=== PATIENT | female | born 1975 | race Caucasian/White ===

== ENCOUNTER → 2016-09-05 | Outpatient (CLI) | payer MEDICAID ==
[2016-09-05 12:20] LABS: Basophils # (A) 0.1 k/uL (0-0.2); Basophils % (A) 1 %; CH 28.5; CHCM 32.9; Eosinophils # (A) 0.2 k/uL (0-0.7); Eosinophils % (A) 2 %; HCT 39.3 % (34.0-46.0); HGB 13.6 gm/dL (11.4-16.0); Luc # (Auto) 0.27; Luc % (Auto) 3; Lymphocytes # (A) 2.5 k/uL (1.0-4.8); Lymphocytes % (A) 25 %; MCH 30.2 pg (25.0-35.0); MCHC 34.6 g/dL (31.0-37.0); MCV 87.3 fL (80.0-100.0); Mean Platelet Volume 6.2; Monocytes # (A) 0.7 k/uL (0-1.0); Monocytes % (A) 7 %; Neutrophils # (A) 6.3 k/uL (1.3-7.7); Neutrophils % (A) 63 %; RBC 4.51 m/uL (3.80-5.40); RDW 13.5 % (11.5-15.5); WBC (Perox) 10.74
[2016-09-05 12:34] LABS: ALT 34 U/L (9-52); AST 21 U/L (14-36); Alkaline Phosphatase 51 U/L (38-126); Anion Gap 13 mmol/L; Blood Urea Nitrogen 13 mg/dL (7-17); Calcium 9.6 mg/dL (8.4-10.2); Carbon Dioxide 26 mmol/L (22-30); Chloride 103 mmol/L (98-107); Glucose 88 mg/dL (74-99); Non-African American GFR(MDRD) >60 (>60 ml/min/1.73 sqM); Potassium 4.7 mmol/L (3.5-5.1); Sodium 142 mmol/L (137-145); Total Bilirubin 1.1 mg/dL (0.2-1.3); Total Protein 8.1 g/dL (6.3-8.2)
[2016-09-05 14:00] LABS: Hemoglobin A1C 5.5 % (4.2-6.1)
[2016-09-05 14:29] LABS: Erythrocyte Sedimentation Rate 15 mm/hr (0-20)
== END | disposition home or self-care (01) ==
LOC: LABWHC1 11:48
PROVIDERS: ATTEND Family Medicine
DX: R23.2 Flushing (principal); R59.1 Generalized enlarged lymph nodes
CPT/HCPCS: 36415; 80053; 83036; 84443; 85025; 85652

== ENCOUNTER → 2016-09-25 | Outpatient (CLI) | payer MEDICAID ==
--- NOTE | 2016-09-25 08:55 | MM ---
Reason for exam: screening (asymptomatic). Baseline mammogram. History: Took hormonal contraceptives for 12 years beginning at age 19. Physical Findings: Nurse did not find any significant physical abnormalities on exam. MG 3D Screening Mammo W/Cad Bilateral CC and MLO view(s) were taken. There are scattered fibroglandular densities. Reinform shaped mass 10 o'clock right breast middle depth likely an intrammary lymph node. A 6 month follow up recommended. These results were verbally communicated with the patient and result sheet given to the patient on 09/25/16. ASSESSMENT: Probably benign, BI-RAD 3 RECOMMENDATION: Follow-up diagnostic mammogram of the right breast in 6 months.
== END | disposition home or self-care (01) ==
LOC: RADMAMWWP 06:58
PROVIDERS: ATTEND Family Medicine
DX: Z12.31 Encounter for screening mammogram for malignant neoplasm of breast (principal); Z00.00 Encounter for general adult medical examination without abnormal findings; R59.1 Generalized enlarged lymph nodes
CPT/HCPCS: 77063; G0202

== ENCOUNTER → 2017-02-02 | Outpatient (CLI) | payer MEDICAID ==
[2017-02-02 18:15] LABS: ANA w/Reflex to Titer NEGATIVE (NEGATIVE); Cyclic Citrull Pep IgG Unit <0.5 U/mL; Cyclic Citrullinated Pep IgG NEGATIVE (NEGATIVE)
[2017-02-03 10:37] LABS: HLA B27 Comment SEEBELOW
== END | disposition home or self-care (01) ==
LOC: LABWHC1 08:04
PROVIDERS: ATTEND Orthopaedic Surgery Hand Surgery
DX: S66.912A Strain of unspecified muscle, fascia and tendon at wrist and hand level, left hand, initial encounter (principal)
CPT/HCPCS: 36415; 86038; 86200; 86431; 86812

== ENCOUNTER → 2018-01-25 | Outpatient (CLI) | payer MEDICAID ==
--- NOTE | 2018-01-27 10:25 | MM ---
Reason for exam: screening (asymptomatic). Last mammogram was performed 9 months ago. History: Took hormonal contraceptives for 12 years beginning at age 19. MG 3D Screening Mammo W/Cad Bilateral CC and MLO view(s) were taken. Prior study comparison: April 19, 2017, right breast MG 3d diag mammo w/cad RT. September 25, 2016, bilateral MG 3d screening mammo w/cad. The breast tissue is almost entirely fat. No significant changes when compared with prior studies. ASSESSMENT: Benign, BI-RAD 2 RECOMMENDATION: Routine screening mammogram of both breasts in 1 year.
== END ==
LOC: RADMAMWWP 10:58
PROVIDERS: ATTEND Family Medicine
DX: Z12.31 Encounter for screening mammogram for malignant neoplasm of breast (principal)
CPT/HCPCS: 77063; 77067

== ENCOUNTER → 2019-03-28 | Outpatient (CLI) | payer MEDICAID ==
[2019-03-28 08:53] LABS: Basophils # (A) 0.1 k/uL (0-0.2); Basophils % (A) 1 %; Eosinophils # (A) 0.3 k/uL (0-0.7); Eosinophils % (A) 3 %; HCT 42.5 % (34.0-46.0); HGB 13.8 gm/dL (11.4-16.0); Lymphocytes # (A) 2.3 k/uL (1.0-4.8); Lymphocytes % (A) 27 %; MCH 28.2 pg (25.0-35.0); MCHC 32.5 g/dL (31.0-37.0); Monocytes # (A) 0.6 k/uL (0-1.0); Monocytes % (A) 7 %; Neutrophils # (A) 5.2 k/uL (1.3-7.7); Neutrophils % (A) 60 %; Platelet Count 303 k/uL (150-450); RBC 4.88 m/uL (3.80-5.40); RDW 13.4 % (11.5-15.5); WBC 8.6 k/uL (3.8-10.6)
[2019-03-28 16:03] LABS: African American GFR (CKD) 103.9 (60.0-200.0); Albumin 4.5 g/dL (3.80-4.90); Albumin/Globulin Ratio 1.8 (1.60-3.17); Anion Gap 3.8 mmol/L (4.00-12.00); BUN/Creat Ratio 16.25 Ratio (12.00-20.00); Calcium 9.5 mg/dL (8.7-10.3); Carbon Dioxide 30.2 mmol/L (21.6-31.8); Globulin 2.5 g/dL (1.6-3.3); Non-African American GFR(CKD) 89.7 (60.0-200.0); Potassium 4.9 mmol/L (3.5-5.5); Total Bilirubin 0.6 mg/dL (0.3-1.2)
== END | disposition home or self-care (01) ==
LOC: LABWHC1 08:09
PROVIDERS: ATTEND Surgery
DX: R59.1 Generalized enlarged lymph nodes (principal)
CPT/HCPCS: 36415; 80053; 85025

== ENCOUNTER → 2020-05-29 | Outpatient (CLI) | payer MEDICAID ==
[2020-05-29 18:15] LABS: HCT 41.2 % (37.2-46.3); HGB 13.3 g/dL (12.0-15.0); MCH 28.8 pg (27.0-32.0); MCHC 32.3 g/dL (32.0-37.0); MCV 89.2 fL (80.0-97.0); Mean Platelet Volume 9.8 fL (9.5-12.2); Platelet Count 356 X 10*3/uL (140-440); RBC 4.62 X 10*6/uL (4.10-5.20); RDW 14.4 % (11.5-14.5); WBC 7.17 X 10*3/uL (4.50-10.00)
[2020-05-30 01:15] LABS: African American GFR (CKD) 89.5 (60.0-200.0); Albumin 4.7 g/dL (3.80-4.90); Albumin/Globulin Ratio 1.81 (1.60-3.17); Anion Gap 11.1 mmol/L (4.00-12.00); BUN/Creat Ratio 17.78 Ratio (12.00-20.00); Calcium 9.7 mg/dL (8.7-10.3); Carbon Dioxide 20.9 mmol/L (21.6-31.8); Globulin 2.6 g/dL (1.6-3.3); Magnesium 2.2 mg/dL (1.5-2.4); Non-African American GFR(CKD) 77.2 (60.0-200.0); Potassium 4.5 mmol/L (3.5-5.5); Total Bilirubin 0.4 mg/dL (0.2-1.2); Total Protein 7.3 g/dL (6.2-8.2)
[2020-05-30 02:23] LABS: Folate, Serum 10.2 ng/mL
== END | disposition home or self-care (01) ==
LOC: LABWHC1 08:27
PROVIDERS: ATTEND Psychiatry & Neurology Neurology
DX: Z20.822 Contact with and (suspected) exposure to COVID-19 (principal); R51.9 Headache, unspecified
CPT/HCPCS: 36415; 80053; 82607; 82746; 83735; 84439; 84481; 85027; 86769

== ENCOUNTER → 2020-06-19 | Outpatient (CLI) | payer MEDICAID ==
--- NOTE | 2020-06-19 09:30 | US ---
EXAMINATION TYPE: US mass soft tissue chest/back DATE OF EXAM: 06/19/2020 COMPARISON: NONE CLINICAL HISTORY: R59.0 Enlarged lymph nodes,R94.31 Abnormal EKG. Patient states having a palpable on right upper chest by clavicle bone that changes in size. Area of concern scanned. Possible well blended lymph node visualized = 1.8 x 0.9 x 0.8 cm. IMPRESSION: Probable adenopathy. Please correlate clinically.
--- NOTE | 2020-06-19 12:00 | ECHOF ---
Referral Reason:R59.0 Enlarged lymph nodes,R94.31 Abnormal EKG MEASUREMENTS -------- HEIGHT: 170.2 cm WEIGHT: 93.9 kg BP: RVIDd: 2.7 cm (< 3.3) IVSd: 0.9 cm (0.6 - 1.1) LVIDd: 4.8 cm (3.9 - 5.3) LVPWd: 1.0 cm (0.6 - 1.1) IVSs: 1.4 cm LVIDs: 3.4 cm LVPWs: 1.2 cm LA Diam: 3.5 cm (2.7 - 3.8) LAESV Index (A-L): 23.74 ml/m Ao Diam: 2.7 cm (2.0 - 3.7) AV Cusp: 1.2 cm (1.5 - 2.6) MV EXCURSION: 19.783 mm (> 18.000) MV EF SLOPE: 103 mm/s (70 - 150) EPSS: 0.2 cm MV E Leno: 0.64 m/s MV DecT: 140 ms MV A Leno: 0.49 m/s MV E/A Ratio: 1.29 RAP: 5.00 mmHg RVSP: 19.39 mmHg FINDINGS -------- Sinus rhythm. This was a technically good study. LV size, wall thickness and systolic function are normal, with an EF greater than 55%. The left serena tricular size is normal. The right ventricle is normal in size. Normal LA size by volume 22+/-6 ml/m2. The right atrial size is normal. The aortic valve is trileaflet, and appears structurally normal. No aortic stenosis or regurgitation. There is trace mitral regurgitation. Mild tricuspid regurgitation present. Right ventricular systolic pressure is normal at < 35 mmHg. There is no pulmonic regurgitation present. The aortic root size is normal. There is no pericardial effusion. CONCLUSIONS -------- 1. LV size, wall thickness and systolic function are normal, with an EF greater than 55%. 2. The left ventricular size is normal. 3. The right ventricle is normal in size. 4. Normal LA size by volume 22+/-6 ml/m2. 5. The right atrial size is normal. 6. There is trace mitral regurgitation. 7. Mild tricuspid regurgitation present. 8. The aortic root size is normal. 9. There is no pericardial effusion. [employer] MANAGER: Tara Sanchez RDCS
== END | disposition home or self-care (01) ==
LOC: RADUSWWP 07:36
PROVIDERS: ATTEND Family Medicine
DX: I08.1 Rheumatic disorders of both mitral and tricuspid valves (principal)
CPT/HCPCS: 93306

== ENCOUNTER → 2020-10-11 | Outpatient (CLI) | payer MEDICAID ==
--- NOTE | 2020-10-11 18:47 | MR ---
EXAMINATION TYPE: MR angio head wo con DATE OF EXAM: 10/11/2020 COMPARISON: NONE HISTORY: Headaches started after Covid shot in Mar., Dizziness TECHNIQUE: Utilizing 3-D [id number] intracranial MRA of the [place] was performed. FINDINGS: The vertebrobasilar and carotid systems are patent. There is a 2 mm prominence of the origin of the r ight posterior communicating artery which may represent an infundibulum. Tiny aneurysm not entirely e xcluded. 6-12 month follow-up recommended to confirm stability. Left vertebral artery is dominant. IMPRESSION: 1. There is a 2 mm nodular prominence origin of the right posterior communicating artery most likely in the basis of a small infundibulum. Tiny aneurysm not entirely excluded recommend 6-12 month follow -up to confirm stability.
--- NOTE | 2020-10-13 11:11 | MR ---
EXAMINATION TYPE: MR cervical spine wo con DATE OF EXAM: 10/11/2020 COMPARISON: None HISTORY: numbness in arms, neck pain TECHNIQUE: Multiplanar, multisequence images of the cervical spine were acquired. C2-C3: No evidence for degenerative disc disease. Left paracentral disc bulging.. No Canal stenosis. Foramina are patent bilaterally. C3-C4: Is degenerative disc disease and left paracentral disc protrusion or small herniation capped b y spur with mild effacement of thecal sac but no foraminal encroachment or canal stenosis. Mild bilat eral uncovertebral joint hypertrophy. C4-C5: Degenerative disc disease with hypertrophic facet arthropathy. There is bilateral uncovertebra l joint hypertrophy and mild central disc protrusion or small herniation and no evidence of canal guanako nosis. C5-C6: Degenerative disc disease with central and right paracentral broad-based disc herniation encro aches upon the anterior margin the spinal cord. Mild bilateral foraminal encroachment with facet arth ropathy and uncovertebral joint hypertrophy. C6-C7: Degenerative disc disease and left paracentral disc herniation resulting in mild anterior comp ression of the spinal cord. Facet arthropathy seen. Mild bilateral neural foraminal encroachment grea ter on the left. C7-T1: Degenerative change of the spine with focal central disc herniation. No spinal cord contact. N eural foramina patent. Suspect disc herniation at T1-T2 which is not included on the exam as well as T2-T3. Cervical segments are intact. There is normal alignment. Cervical spinal cord is of normal signal. Craniovertebral junction relationships are within normal limits. A partially empty sella turcica. IMPRESSION: 1. Multilevel degenerative disc disease with multilevel disc herniations most pronounced at C5-6 and C6-C7 with mild encroachment and anterior mass effect upon the spinal cord as discussed above. 2. Recommend thoracic spine MRI as there appears to be sagittal disc herniations at T1-T2 and T2-T3 n ot included on the axial images.
== END | disposition home or self-care (01) ==
LOC: RADMRIMAIN 16:34
PROVIDERS: ATTEND Psychiatry & Neurology Neurology
DX: R42 Dizziness and giddiness (principal); M50.223 Other cervical disc displacement at C6-C7 level; M50.323 Other cervical disc degeneration at C6-C7 level
CPT/HCPCS: 70544; 72141

== ENCOUNTER → 2020-12-23 | Outpatient (CLI) | payer MEDICAID ==
--- NOTE | 2020-12-24 12:15 | MM ---
Reason for exam: screening (asymptomatic). Last mammogram was performed 2 years and 11 months ago. History: Took hormonal contraceptives for 12 years beginning at age 19. Physical Findings: A clinical breast exam by your physician is recommended on an annual basis and results should be correlated with mammographic findings. MG 3D Screening Mammo W/Cad Bilateral CC and MLO view(s) were taken. Prior study comparison: January 25, 2018, bilateral MG 3d screening mammo w/cad. September 25, 2016, bilateral MG 3d screening mammo w/cad. There are scattered fibroglandular densities. There is no discrete abnormality. ASSESSMENT: Negative, BI-RAD 1 RECOMMENDATION: Routine screening mammogram of both breasts in 1 year.
== END | disposition home or self-care (01) ==
LOC: RADMAMWWP 07:56
PROVIDERS: ATTEND Family Medicine
DX: Z12.31 Encounter for screening mammogram for malignant neoplasm of breast (principal)
CPT/HCPCS: 77063; 77067

== ENCOUNTER → 2021-02-22 | Outpatient (CLI) | payer MEDICAID, OTHER | END | disposition home or self-care (01) | LOC: LABWHC1 15:55 | PROVIDERS: ATTEND Emergency Medicine | DX: Z20.822 Contact with and (suspected) exposure to COVID-19 (principal) | CPT/HCPCS: 87635 ==

== ENCOUNTER → 2021-03-11 | Outpatient (CLI) | payer MEDICAID ==
[2021-03-11 14:17] LABS: Appearance,Urine Clear (Clear); Bacteria,Urine Rare /hpf; Bilirubin,Urine Negative (Negative); Blood,Urine Small (Negative); Color,Urine Yellow; Glucose,Urine (UA) Negative (Negative); Ketones,Urine Negative (Negative); Leukocyte Esterase,Urine Moderate (Negative); Mucus,Urine Rare /hpf; Nitrite,Urine Negative (Negative); PH, Urine 5.5 (5.0-8.0); Protein,Urine Negative (Negative); RBC,Urine 1 /hpf (0-5); Specific Gravity,Urine 1.018 (1.001-1.035); Squamous Epithelial Cell,Urine 1 /hpf (0-4); Urobilinogen,Urine <2.0 mg/dL (<2.0); WBC,Urine 4 /hpf (0-5)
== END | disposition home or self-care (01) ==
LOC: LABWHC1 10:51
PROVIDERS: ATTEND Nurse Practitioner
DX: N39.0 Urinary tract infection, site not specified (principal)
CPT/HCPCS: 81001

== ENCOUNTER → 2023-03-25 | Outpatient (CLI) | payer MEDICAID ==
--- NOTE | 2023-03-28 17:04 | MM ---
Reason for Exam: Screening (asymptomatic). Last mammogram was performed 2 year(s) and 3 month(s) ago. Patient History: Menarche at age 12. First Full-Term at age 24. Patient has history of breast feeding. Hormonal Contraceptives for 12 years from age 19 until age 31. Last menstrual period: 03/14/2023 Risk Values: Vivian 5 year model risk: 1.0%. NCI Lifetime model risk: 10.2%. Prior Study Comparison: 04/19/2017 Right Diagnostic Mammogram, [facility]. 01/25/2018 Bilateral Screening Mammogram, [facility]. 12/23/2020 Bilateral Screening Mammogram, [facility]. Tissue Density: There are scattered fibroglandular densities. Findings: Analyzed By CAD. The pattern is symmetrical and stable. No significant interval changes. No suspicious groups of microcalcifications, spiculated or lobular masses, architectural distortion or other secondary signs of malignancy are mammographically apparent. Overall Assessment: Negative, BI-RAD 1 Management: Screening Mammogram of both breasts in 1 year. A negative mammogram report should not preclude additional follow up of suspicious palpable abnormalities. Patient should continue monthly self breast exam. A clinical breast exam by your physician is recommended on an annual basis and results should be correlated with mammographic findings. Electronically signed and approved by: Humberto Oh D.O. Radiologis
== END | disposition home or self-care (01) ==
LOC: RADMAMWWP 16:00
PROVIDERS: ATTEND Family Medicine
DX: Z12.31 Encounter for screening mammogram for malignant neoplasm of breast (principal)
CPT/HCPCS: 77063; 77067